=== PATIENT | male | born 1980 ===

== ENCOUNTER 2024-08-24 08:39 | Emergency (ER) | payer MEDICAID ==
[~2024-08-24] VITALS: Ht 154.9 cm; Wt 80.8 kg
[2024-08-24] MEDS: ketorolac trometh 15mg/ml vial 15 MG/ML ML IM ONE (09:07)
[2024-08-24 09:11] VITALS: BP 113/90; PULSE 106; RESP 16; TEMP 98.8; O2SAT 98
== END 2024-08-24 09:12 | disposition home or self-care (01) ==
LOC: ER 08:40
DX: R52 Pain, unspecified (principal)
CPT/HCPCS: 96372; 99283; J1885